=== PATIENT | female | born 1985 | race Caucasian/White ===

== ENCOUNTER 2017-05-17 15:54 | Emergency (ER) | payer BC ==
[~2017-05-17] VITALS: Ht 172.7 cm; Wt 87.3 kg
[2017-05-17 15:54] VITALS: Ht 172.7 cm; Wt 87.3 kg
[~2017-05-17 15:54] MED LIST: BCPILLS PO; SERT25TA PO
[2017-05-17] MEDS ORDERED: SODIUM CHLORIDE 0.9% 1000ML 250 ML IV STA (16:17)
[2017-05-17] MEDS ORDERED: SODIUM CHLORIDE 0.9% 1000ML 1,000 ML IV STA (16:17)
[2017-05-17] MEDS ORDERED: KETOROLAC TROMETHAMINE 30 MG/ML VIAL IV STA (16:17)
[2017-05-17 16:26] LABS: BASO % 0.4 %; BASO ABS # 0.03 K/uL (0-0.2); COMPLETE YES; HEMATOCRIT 38.1 % (37-47); IG% 0.3 %; LYMPH % 37.2 %; LYMPH ABS # 2.63 K/uL (1.2-3.4); MEAN CELL VOLUME 81.8 fL (80-100); MEAN CORPUSCULAR HEMOGLOBIN 27.3 pg (25-34); MEAN CORPUSCULAR HGB CONC 33.3 g/dl (32-36); MEAN PLATELET VOLUME 9.9 fL (7.4-10.4); MONO % 4.7 %; NEUT % 54.4 %; PLATELET COUNT 265 K/uL (130-400); RED BLOOD COUNT 4.66 M/uL (4.2-5.4); WHITE BLOOD COUNT 7.07 K/uL (4.8-10.8)
[2017-05-17 16:34] LABS: POINT OF CARE TROPONIN I < 0.030 ng/ml (0-0.045)
--- NOTE | 2017-05-17 16:45 | EMERGENCY ROOM VISIT NOTE ---
History Report prepared by Alesia: Sergio Gary Under the Supervision of: Dr. Skinny Hudson M.D. First contact with patient: 16:07 Stated Complaint: CHEST PAIN History of Present Illness The patient is a 31 year old female who presents to the Emergency Room by EMS with complaints of constant chest pain beginning 30 minutes ago. She states that she was standing at her desk at work when her pain suddenly began. She states that she became diaphoretic before her chest pain began. The patient estimates that she was standing there for 1.5 hours before her pain began. She also complains of SOB. The patient was given three sprays of NTG en route which has caused the patient to develop a headache. She denies any pain radiation. Her pain is not worsened with deep breathing. The patient denies leg pain or swelling, abdominal pain, fevers, rash, or black or bloody stool. She has no history of similar symptoms. She denies chance of . The patient is on control. She has a history of anxiety and depression which she states has been steady. She states that she has felt stressed recently but not more so than usual. Source of History: patient Onset: 30 minutes ago Position: chest Timing: constant Associated Symptoms: + headache, + diaphoresis, + SOB, No fevers, No abdominal pain, No melena, No hematochezia, No rash Note: The patient denies leg pain or swelling. Review of Systems See HPI for pertinent positives & negatives. A total of 10 systems reviewed and were otherwise negative. Past Medical & Surgical Medical Problems: (1) Anxiety (2) Depression (3) Right hip pain (4) Syncope Surgical Problems: (1) Previous section Old medical records were reviewed. Nurse's notes were reviewed and I agree with. Family History Cancer Social History Smoking Status: Never Smoker Drug Use: none Housing Status: lives with family Occupation Status: employed Current/Historical Medications Scheduled Control Pills ( Control Pills), 1 TAB PO DAILY Sertraline (Zoloft), 25 MG PO HS Allergies Coded Allergies: No Known Allergies (Unverified , 07/09/15) Physical Exam Vital Signs Date Time Temp Pulse Resp B/P (MAP) Pulse Ox O2 Delivery O2 Flow Rate FiO2 05/17/17 17:58 36.8 74 19 147/85 97 05/17/17 17:45 147/85 05/17/17 17:41 74 19 97 05/17/17 17:36 68 14 97 Room Air 05/17/17 17:31 154/84 05/17/17 17:06 75 18 95 Room Air 05/17/17 17:01 153/82 05/17/17 16:36 72 15 97 Room Air 05/17/17 16:31 137/90 05/17/17 16:29 77 17 98 05/17/17 16:24 72 14 97 05/17/17 16:06 154/85 05/17/17 16:04 94 05/17/17 15:54 97 Room Air 05/17/17 15:54 36.8 78 16 154/85 97 Room Air Physical Exam General: Non-ill appearing young female in no acute distress. HEENT: Normal cephalic atraumatic. Pupils are equal round and reactive to light. Sclerae anicteric. Extraocular movements are intact. Oropharynx is pink with moist mucous membranes. No swelling of the mouth lips or tongue. Neck: Supple with a midline trachea. No meningeal signs or stiffness, no JVD or bruits. No Stridor. Chest: Clear to auscultation bilaterally. No wheezes or rhonchi. No increased work of breathing. Exquisitely tender to palpation in the central sternal area. No rash. Heart: regular rate and rhythm. Abdomen: Soft nontender, nondistended without rebound guarding or rigidity. Extremities: No cyanosis clubbing or edema. No calf tenderness or assymetry Spine/Back. Non tender to palpation. No CVA tenderness Skin: Good turgor without rashes. Neurologic exam: Cranial nerves two through 12 are intact. Motor and sensation are intact and symmetrical throughout. Medical Decision & Procedures ER Provider Diagnostic Interpretation: X-ray results as stated below per interpretation by me and the radiologist: CHEST ONE VIEW PORTABLE FINDINGS: Cardiomediastinal and hilar silhouettes are within normal limits. There is no pneumothorax, pleural effusion, focal airspace consolidation or overt pulmonary edema. Linear subsegmental opacity of the right lung base suggests a composite density artifact or atelectasis. The bones are grossly intact. IMPRESSION: 1. No acute cardiopulmonary process. 2. Linear subsegmental opacity of the right lung base suggest composite tissue artifact or atelectasis. The above report was generated using voice recognition software. It may contain grammatical, syntax or spelling errors. Electronically signed by: Konstantin Sorensen M.D. 05/17/2017 4:56 PM Laboratory Results 05/17/17 15:54 Red Blood Count 4.66, Mean Corpuscular Volume 81.8, Mean Corpuscular Hemoglobin 27.3, Mean Corpuscular Hemoglobin Concent 33.3, Mean Platelet Volume 9.9, Neutrophils (%) (Auto) 54.4, Lymphocytes (%) (Auto) 37.2, Monocytes (%) (Auto) 4.7, Eosinophils (%) (Auto) 3.0, Basophils (%) (Auto) 0.4, Neutrophils # (Auto) 3.85, Lymphocytes # (Auto) 2.63, Monocytes # (Auto) 0.33, Eosinophils # (Auto) 0.21, Basophils # (Auto) 0.03 05/17/17 15:54 Test 05/17/17 15:54 05/17/17 16:14 White Blood Count 7.07 K/uL (4.8-10.8) Red Blood Count 4.66 M/uL (4.2-5.4) Hemoglobin 12.7 g/dL (12.0-16.0) Hematocrit 38.1 % (37-47) Mean Corpuscular Volume 81.8 fL (80-100) Mean Corpuscular Hemoglobin 27.3 pg (25-34) Mean Corpuscular Hemoglobin Concent 33.3 g/dl (32-36) Platelet Count 265 K/uL (130-400) Mean Platelet Volume 9.9 fL (7.4-10.4) Neutrophils (%) (Auto) 54.4 % Lymphocytes (%) (Auto) 37.2 % Monocytes (%) (Auto) 4.7 % Eosinophils (%) (Auto) 3.0 % Basophils (%) (Auto) 0.4 % Neutrophils # (Auto) 3.85 K/uL (1.4-6.5) Lymphocytes # (Auto) 2.63 K/uL (1.2-3.4) Monocytes # (Auto) 0.33 K/uL (0.11-0.59) Eosinophils # (Auto) 0.21 K/uL (0-0.5) Basophils # (Auto) 0.03 K/uL (0-0.2) RDW Standard Deviation 39.0 fL (36.4-46.3) RDW Coefficient of Variation 13.0 % (11.5-14.5) Immature Granulocyte % (Auto) 0.3 % Immature Granulocyte # (Auto) 0.02 K/uL (0.00-0.02) Anion Gap 9.0 mmol/L (3-11) Est Creatinine Clear Calc Drug Dose 107.6 ml/min Estimated GFR () 102.9 Estimated GFR (Non- 88.8 BUN/Creatinine Ratio 15.9 (10-20) Calcium Level 9.1 mg/dl (8.5-10.1) Total Bilirubin 0.3 mg/dl (0.2-1) Direct Bilirubin < 0.1 mg/dl (0-0.2) Aspartate Amino Transf (AST/SGOT) 18 U/L (15-37) Alanine Aminotransferase (ALT/SGPT) 23 U/L (12-78) Alkaline Phosphatase 22 U/L (45-117) Total Creatine Kinase 93 U/L (26-192) Creatine Kinase MB 0.6 ng/ml (0.5-3.6) Creatine Kinase MB Ratio 0.6 (0-3.0) Total Protein 7.4 gm/dl (6.4-8.2) Albumin 3.6 gm/dl (3.4-5.0) Lipase 202 U/L (73-393) Human Chorionic Gonadotropin, Qual NEG (NEG) Bedside D-Dimer 219 ng/mlFEU (0-450) Bedside Troponin I < 0.030 ng/ml (0-0.045) Laboratory studies as stated above per my review. Medications Administered Medications (Trade) Dose Ordered Sig/Jayjay Route Start Time Stop Time Status Last Admin Dose Admin Ketorolac Tromethamine (Toradol Inj) 30 mg NOW STAT IV 05/17/17 16:17 05/17/17 16:19 DC 05/17/17 16:32 30 MG Sodium Chloride 250 ml @ 999 mls/hr Q16M STAT IV 05/17/17 16:17 05/17/17 16:32 DC 05/17/17 16:32 999 MLS/HR Sodium Chloride 1,000 ml @ 100 mls/hr Q10H STAT IV 05/17/17 16:17 10/6/17 02:16 05/17/17 16:32 100 MLS/HR ECG Indication: chest pain Rate (beats per minute): 74 Rhythm: normal sinus Findings: no acute ischemic change, no ectopy Comparison ECG Date: Jul 09, 2015 Change: no significant change Change: Repeat ECG reveals a normal sinus rhythm with a rate of 68 bpm. No acute ischemic change or ectopy seen. No significant change compared to previous ECG. ED Course 1608: Past medical records reviewed. The patient was evaluated in room A9B, and a complete history and physical examination were performed. 1617: Ordered Sodium Chloride 1000 ml @ 100 mls/hr IV, Sodium Chloride 250 ml @ 999 mls/hr IV, Toradol Inj 30 mg IV. 1750: Upon reevaluation, the patient is resting comfortably. I discussed the results and treatment plan with her. She verbalized agreement of the treatment plan. The patient was discharged home. Medical Decision Differentials include, but are not limited to; acute coronary syndrome, PE, pneumothorax, costochondritis, anxiety, gall bladder disease and electrolyte or metabolic abnormality. This patient comes in as described above. She has central chest pain and is extremely reproducible on palpation. She was brought in by ambulance . She was given aspirin. She also given nitroglycerin which had no effect on her chest pain. EKG shows no ischemic changes or ectopy seen. Multiple blood testing was obtained obtained including troponin and d-dimer. Chest x-ray was obtained. She was hydrated with IV normal saline and was given Toradol 30 mg IV. She was reassessed frequently. EKG #2 does not show any ischemic changes and no change compared to EKG #1. Her cardiac enzymes are not elevated. She has no white count or fever to suggest infection. Chest x-ray does not suggest congestive heart failure, pneumonia or pneumothorax. Her d-dimer is negative and in a pretest, satting, he makes PE highly unlikely. I do think is likely costochondritis, she is exquisitely reproducibly tender. It could be shingles although at this point she does not have a rash. She's to use anti- inflammatories like ibuprofen. Return if: increasing pain, worsening of symptoms, fever or chills, any new problems or concerns. She was happy with the plan and discharged to home. She should follow up with her doctor either tomorrow or early next week for recheck or return to ER any point if symptoms worsen. Medication Reconcilliation Current Medication List: was personally reviewed by me Blood Pressure Screening Patient's blood pressure: Elevated blood pressure Blood pressure disposition: Elevated BP felt to be situational Impression Primary Impression: Chest pain Additional Impression: Costochondritis Scribe Attestation The scribe's documentation has been prepared under my direction and personally reviewed by me in its entirety. I confirm that the note above accurately reflects all work, treatment, procedures, and medical decision making performed by me. Departure Information Dispostion Home / Self-Care Referrals Paxton Guan MD (PCP) Forms HOME CARE DOCUMENTATION FORM, IMPORTANT VISIT INFORMATION Patient Instructions [facility] Additional Instructions Rest Drink plenty of fluids Use Ibuprofen 400 mg every 6 hours as needed. Take with food May also use acetaminophen/Tylenol with a maximum of 2 pjys-goh-fiabrit pills every 6 hours Do not take with any other medications that contain acetaminophen/Tylenol Return if: Increasing pain, worsening of symptoms, fever or chills, any new problems or concerns Follow-up with your doctor either tomorrow or early next week for recheck and return ER over the weekend if symptoms worsen. Problem Qualifiers
[2017-05-17 16:46] LABS: ALT/SGPT 23 U/L (12-78); AST/SGOT 18 U/L (15-37); BLOOD UREA NITROGEN 14 mg/dl (7-18); BUN/CREATININE RATIO 15.9 (10-20); CALCIUM 9.1 mg/dl (8.5-10.1); CARBON DIOXIDE 25 mmol/L (21-32); CHLORIDE 105 mmol/L (98-107); CREATININE 0.86 mg/dl (0.60-1.20); GLUCOSE 98 mg/dl (70-99); POTASSIUM 3.7 mmol/L (3.5-5.1); SODIUM 139 mmol/L (136-145)
[2017-05-17 16:51] LABS: ALKALINE PHOSPHATASE 22 U/L (45-117); CKMB/CK RATIO 0.6 (0-3.0)
--- NOTE | 2017-05-17 16:57 | DIAGNOSTIC IMAGING REPORT ---
CHEST ONE VIEW PORTABLE HISTORY: 31 years-old Female CHEST PAIN acute atypical chest pain. COMPARISON: Chest radiograph 03/15/2011 TECHNIQUE: Portable upright AP view the chest FINDINGS: Cardiomediastinal and hilar silhouettes are within normal limits. There is no pneumothorax, pleural effusion, focal airspace consolidation or overt pulmonary edema. Linear subsegmental opacity of the right lung base suggests a composite density artifact or atelectasis. The bones are grossly intact. IMPRESSION: 1. No acute cardiopulmonary process. 2. Linear subsegmental opacity of the right lung base suggest composite tissue artifact or atelectasis. The above report was generated using voice recognition software. It may contain grammatical, syntax or spelling errors. Electronically signed by: Konstantin Sorensen M.D. 05/17/2017 4:56 PM Dictated Date/Time: 05/17/2017 4:55 PM
[2017-05-17] MEDS ORDERED: BCPILLS PO (17:06)
[2017-05-17] MEDS ORDERED: SERT25TA PO (17:06)
[2017-05-17 17:24] LABS: PREG INTERNAL NEGATIVE QC NEG CLEAR BACKGROUND; PREG INTERNAL POSITIVE QC POS CONTROL LINE
[2017-05-17 17:58] VITALS: BP 147/85; PULSE 74; TEMP 36.8; O2SAT 97
== END 2017-05-17 18:06 | disposition home or self-care (01) ==
LOC: EDBD 15:54 → C.EDA 15:57
DX: R07.9 Chest pain, unspecified (principal); M94.0 Chondrocostal junction syndrome [Tietze]; F41.9 Anxiety disorder, unspecified; F32.9 Major depressive disorder, single episode, unspecified; R55 Syncope and collapse